=== PATIENT | female | born 1985 | race Two or more races ===

== ENCOUNTER 2019-08-15 21:02 | Emergency (ER) | payer BC, SELFPAY ==
[2019-08-15 21:22] VITALS: BP 141/74; PULSE 83; RESP 18; TEMP 37.4; O2SAT 98; BMI 41.8
[2019-08-15 21:56] VITALS: BP 116/76; PULSE 82; RESP 20; TEMP 37.1; O2SAT 96
--- NOTE | 2019-08-15 22:10 | XR_ITS ---
WS: [id number] PROCEDURE: XR chest 2V* [id number] CLINICAL INFORMATION: Fever and body aches COMPARISON: [id number] FINDINGS: Heart: Normal cardiac silhouette. Lungs: Lungs are clear. No consolidation or pleural fluid. Bones: Normal visualized bony structures. XR/XR chest 2V* [id number] IMPRESSION: Normal chest
[2019-08-15 22:11] LABS: Bilirubin Urine Neg (NEGATIVE); Blood Urine Neg (Negative); Glucose Urine UA Norm (Normal); Ketones Urine Negative (Negative); Leukocyte Esterase Urine Negative (Negative); Nitrate Urine Negative (Negative); Protein Urine Neg (Negative); Specific Gravity, Urine 1.007 (1.005-1.030); Urine Appearance Clear (CLEAR); Urine Color Straw (Yellow); Urobilinogen Urine Norm (Negative); pH Urine 7 (5-7)
[2019-08-15 22:12] LABS: Add Urine Culture? No
--- NOTE | 2019-08-15 22:12 | ED_ITS ---
HPI - General Adult General: Chief complaint: General Medical Stated complaint: FEVER, BODY ACHES Time Seen by Provider: 08/15/19 21:44 History of Present Illness: HPI narrative: Patient is a 34-year-old female comes to the ED with fever, body aches and nonproductive cough that started yesterday. She says her temperature at home today earlier this evening was 101 F and then she took ibuprofen this. She is also taking Mucinex today as well. She has some nasal congestion and cough, But the cough is nonproductive and she is not able to get up any sputum. She did state that she smokes 2 packs a day. She also started getting body aches. Denies any chest pain, shortness breath, nausea, vomiting, abdominal pain, constipation, blood in the stool, dysuria, hematuria. She does state that she had a little bit of diarrhea today but just one episode. Review of Systems General: Reports: 10 or more systems reviewed and unremarkable except in HPI and below PFSH ED PFSH: Statuses (acute, chronic, etc) shown below reflect problem list status as previously entered and may not be historically accurate Social History Smoking and tobacco status: never smoked Female Reproductive History: Date of last menstrual period: 08/07/19 Physical Exam Const: COMMON NORMALS: oriented x3 GENERAL APPEARANCE: diaphoretic (skin is clammy on face, hands and arms.) HENMT: COMMON NORMALS: normocephalic, TM's normal bilaterally and moist oral mucous membranes HEAD & SCALP: normocephalic FACE & SINUS: sinus tenderness frontal NOSE: nasal discharge clear TYMPANIC MEMBRANE: TM's normal bilaterally MOUTH: oral and palatal mucosa normal THROAT: posterior oropharynx normal and uvula midline Neck/C-Spine: COMMON NORMALS: supple GENERAL: Yes normal visual inspection Resp: COMMON NORMALS: normal respiratory effort, no retractions, no use of accessory muscles and clear to auscultation bilaterally AUSCULTATION: clear to auscultation bilaterally Cardio: COMMON NORMALS: regular rate, regular rhythm, S1 normal heart sound, S2 normal heart sound, no gallops, no clicks, no murmurs and peripheral pulses 2+ throughout RATE: regular rate RHYTHM: regular rhythm HEART SOUNDS: S1 normal and S2 normal PERIPHERAL PULSES: pulses 2+ throughout GI: COMMON NORMALS: normal to inspection, nondistended, normoactive bowel sounds, soft to palpation, non-tender and no masses PALPATION: Yes soft : COMMON NORMALS: Yes no CVA tenderness BLADDER/KIDNEY EXAM: Yes no CVA tenderness Back/Pelvis: COMMON NORMALS: no CVA tenderness Extremity: COMMON NORMALS: normal to inspection Neuro: COMMON NORMALS: oriented x3 and moves all extremities Skin: COMMON NORMALS: no rashes or lesions noted GENERAL SKIN EXAM: no rashes or lesions noted Course Vital Signs: Vital signs: Vital Signs Temperature 98.0 F 08/15/19 23:51 Pulse Rate 95 08/15/19 23:51 Respiratory Rate 16 08/15/19 23:51 Blood Pressure 111/64 08/15/19 23:51 Pulse Oximetry 98 08/15/19 23:51 MDM - General Adult Lab Data: Attestation: I reviewed the patient's lab results. Labs: Lab Results 08/15/19 08/15/19 Range/Units 20:20 20:20 Urine Color Straw (Yellow) Urine Appearance Clear (CLEAR) Urine pH 7 (5-7) Ur Specific Gravit y 1.007 (1.005-1.030) Urine Protein Neg (Negative) Urine Glucose (UA) Norm (Normal) Urine Ketones Negative (Negative) Urine Occult Blood Neg (Negative) Urine Nitrate Negative (Negative) Urine Bilirubin Neg (NEGATIVE) Urine Urobilinogen Norm (Negative) mg/dL Ur Leukocyte Taylor ase Negative (Negative) Influenza Type A A g Negative (Negative) POC Influenza B Ag Negative (Negative) Imaging Data^: CXR: Attestation: I personally reviewed and interpreted this imaging study as follows: My impression: No acute findings. Pending final radiology report. Discharge Plan Discharge Patient Disposition: Home, Self-Care Clinical Impression: Upper respiratory infection with cough and congestion Condition: Stable Prescriptions: New Tessalon Perles 100 mg capsule 100 mg PO TID PRN (Reason: cough) Qty: 30 RF: 0 No Action No Known Home Medications RF: 0 Discharge Orders: Discharge Order (Routine); Ordered 08/15/19 Ordered By: Donovan Mc Referrals: Lia Vargas DO [Family Provider] - Discharge Diet: Regular Discharge Activity: Resume usual activity Patient Instructions: Upper Respiratory Infection (ED) Activity Restrictions/Additional Instructions: Follow-up with your primary care provider in 7 days for reevaluation. Continue symptom management by drinking plenty of fluids, taking Mucinex and treating fevers with Tylenol or ibuprofen. Discharge Date/Time: 08/16/19 00:01 Coding Level of Care Code ED Medical Technologist Prn for Dede Styles
[2019-08-15 22:23] LABS: Influenza A by IFA Negative (Negative); Influenza B by IFA Negative (Negative)
[2019-08-15 23:51] VITALS: BP 111/64; PULSE 95; RESP 16; TEMP 36.7; O2SAT 98
== END 2019-08-16 00:01 | disposition home or self-care (01) ==
PROVIDERS: Emergency Medicine; Emergency Provider Physician Assistant; Family Provider Family Medicine
DX: J06.9 Acute upper respiratory infection, unspecified (principal); R05 Cough; R09.81 Nasal congestion; F17.210 Nicotine dependence, cigarettes, uncomplicated
CPT/HCPCS: 71046; 81001; 87804; 99281; 99283

== ENCOUNTER 2019-08-17 13:46 | Emergency (ER) | payer BC, SELFPAY ==
[2019-08-17 14:57] VITALS: BP 128/69; PULSE 65; RESP 18; TEMP 36.7; O2SAT 96; BMI 41.8
--- NOTE | 2019-08-17 15:14 | W.ED.FEVER ---
HPI - Fever General: Chief Complaint: Fever Stated Complaint: coughing/fever Time Seen by Provider: 08/17/19 15:07 Source: patient Mode of arrival: ambulatory Limitations: no limitations History of Present Illness: HPI Narrative: Patient comes in today with cough with congestion and fever for 4 days. Patient appears mildly unwell. Patient reports that she gets bronchitis once or twice a year and usually has to be treated for it. Patient appears in no pain. MD elicited complaint: fever Review of Systems General: Reports: 10 or more systems reviewed and unremarkable except in HPI and below Const: Reports: fever Resp: Reports: non-productive cough PFSH ED PFSH: Statuses (acute, chronic, etc) shown below reflect problem list status as previously entered and may not be historically accurate Social History Smoking and tobacco status: current every day smoker Female Reproductive History: Date of last menstrual period: 08/07/19 Physical Exam Const: COMMON NORMALS: no apparent distress and oriented x3 GENERAL APPEARANCE: cooperative HENMT: COMMON NORMALS: normocephalic, external ears normal, EAC's normal, TM's normal bilaterally and external nose normal HEAD & SCALP: normal to inspection and normocephalic FACE & SINUS: normal facial exam NOSE: external nose normal GENERAL EAR: hearing not grossly impaired EXTERNAL EAR: Yes external ears normal EXTERNAL AUDITORY CANAL: EAC's normal TYMPANIC MEMBRANE: TM's normal bilaterally MOUTH: oral and palatal mucosa normal THROAT: posterior oropharynx normal Eye: COMMON NORMALS: PERRL and EOMs intact bilaterally PUPIL: Yes PERRL Neck/C-Spine: COMMON NORMALS: full ROM and no lymphadenopathy Lymph: LYMPHATIC: no lymphedema noted Chest: COMMONS NORMALS: inspection of chest normal and palpation of chest normal Resp: COMMON NORMALS: normal respiratory effort AUSCULTATION: rhonchi Cardio: COMMON NORMALS: regular rate and regular rhythm RATE: regular rate RHYTHM: regular rhythm GI: COMMON NORMALS: normal to inspection, nondistended, normoactive bowel sounds and non-tender : COMMON NORMALS: Yes no CVA tenderness BLADDER/KIDNEY EXAM: Yes no CVA tenderness Back/Pelvis: COMMON NORMALS: no CVA tenderness and thoracic and lumbar spine normal to inspection Extremity: COMMON NORMALS: normal to inspection GENERAL: No edema Neuro: COMMON NORMALS: oriented x3, moves all extremities and no focal motor deficits Psych: COMMON NORMALS: mental status grossly normal and cooperative Skin: COMMON NORMALS: no rashes or lesions noted GENERAL SKIN EXAM: no rashes or lesions noted Course Vital Signs: Vital signs: Vital Signs Temperature 97.7 F 08/17/19 15:52 Pulse Rate 66 08/17/19 15:52 Respiratory Rate 16 08/17/19 15:52 Blood Pressure 110/72 08/17/19 15:52 Pulse Oximetry 98 08/17/19 15:52 MDM - Fever MDM Narrative: Medical decision making narrative: Patient comes in today with complaints of cough and congestion with fever for 4 days. On exam patient appears mildly unwell. Respirations are even with bronchial sounds in the lungs. Skin is warm and dry. Vital signs are stable. Differential diagnosis includes pneumonia, bronchitis, COPD, asthma. Reviewed exam with patient with recommendations for treatment and need for follow-up. Patient was given dexamethasone for help with respiratory effort and congestion. Patient was written prescriptions to follow. Patient reports understanding and agreed to plan. Discharge Plan Discharge Patient Disposition: Home, Self-Care Clinical Impression: Acute bronchitis Qualifiers: Bronchitis organism: unspecified organism Qualified Code(s): J20.9 - Acute bronchitis, unspecified Condition: Stable Prescriptions: New azithromycin 500 mg tablet 500 mg PO DAILY 3 Days Qty: 3 RF: 0 prednisone 20 mg tablet 40 mg PO DAILY 3 Days Qty: 6 RF: 0 codeine-guaifenesin 10-200 mg/5 mL liquid 5 ml PO Q4H PRN (Reason: cough) Qty: 200 RF: 0 No Action Tessalon Perles 100 mg capsule 100 mg PO TID PRN (Reason: cough) Qty: 30 RF: 0 Discharge Orders: Discharge Order (Routine); Ordered 08/17/19 Ordered By: Edmundo Camacho Referrals: Lia Vargas DO [Family Provider] - Discharge Diet: Usual diet Discharge Activity: Increase activity as tolerated Patient Instructions: Acute Bronchitis (ED) Activity Restrictions/Additional Instructions: Drink plenty of fluids Stop smoking Follow-up in one week for persistent symptoms Discharge Date/Time: 08/17/19 15:39 Coding Level of Care Code ED Retail Receiving Clerk for Chg Fwd Exam Problem Focused
[2019-08-17] MEDS: dexamethasone 10 mg/mL INJ IM (15:39)
[2019-08-17 15:52] VITALS: BP 110/72; PULSE 66; RESP 16; TEMP 36.5; O2SAT 98
== END 2019-08-17 15:39 | disposition home or self-care (01) ==
PROVIDERS: Emergency Provider Nurse Practitioner Family; Family Provider Family Medicine
DX: J20.9 Acute bronchitis, unspecified (principal); F17.210 Nicotine dependence, cigarettes, uncomplicated
CPT/HCPCS: 96372; 96375; 99281; 99282; J1100

== ENCOUNTER 2019-10-28 17:49 | Emergency (ER) | payer BC, SELFPAY ==
[2019-10-28 18:13] VITALS: BP 154/102; PULSE 83; RESP 18; TEMP 36.4; O2SAT 98; BMI 40.7
--- NOTE | 2019-10-28 18:26 | ED_ITS ---
HPI - Abdominal Pain General: Chief Complaint: Abdominal Pain Stated Complaint: abd pain Time Seen by Provider: 10/28/19 18:14 History of Present Illness: HPI narrative: 34-year-old female comes in complaining of abdominal pain in the epigastric area radiating into her back and into the chest is been going on for the last 2 days no history of any trauma is been mildly constipated is not been associated with any exertion. She has noticed is gotten worse by eating does not really even matter what she eats both lasagna and crackers seem to precipitate pain not eating does seem to make it better. She denies nausea or vomiting she denies any acholic stools. Denies any hematochezia or melena no UTI symptoms. No hematuria. MD elicited complaint: abdominal pain Pertinent past history: constipation Onset (ago): day(s) (2) Pain Consistency: intermittent Location: Epigastric Severity: moderate Quality: stabbing Radiation: epigastric and chest Migration to: no migration Exacerbating factors: eating Relieving factors: other (Not eating) Associated Symptoms: Reports bloating, constipation and GI cramping; Denies change in stool character, coffee ground emesis, diarrhea, dyspepsia, fever(s), hematochezia, hematuria, hematemesis, loose stools, melena, nausea and vomiting Treatments prior to arrival: other (Laxatives with no relief) Related Data: Date of Last Menstrual Period: 08/07/19 Review of Systems Const: Denies: fever ENMT: Denies: throat pain, ear pain, nasal discharge or nasal congestion Card: Denies: chest pain, edema, shortness of breath on exertion or shortness of breath when lying down Resp: Denies: shortness of breath, productive cough or non-productive cough GI: Reports: constipation, bloating and cramping; Denies: nausea, vomiting, vomiting blood, coffee grounds in vomit, diarrhea, change in stool character, blood in stool or black tarry stool : Denies: blood in urine Skin/Breast: Denies: rash or itching PFSH ED PFSH: Social History Smoking and tobacco status: current every day smoker Female Reproductive History: Date of last menstrual period: 08/07/19 Physical Exam Const: COMMON NORMALS: no apparent distress GENERAL APPEARANCE: cooperative and comfortable ORIENTATION/CONSCIOUSNESS: Yes awake, Yes oriented to person, Yes oriented to place and Yes oriented to time HENMT: COMMON NORMALS: normocephalic, head/scalp atraumatic, hearing grossly normal bilaterally, external ears normal, EAC's normal, TM's normal bilaterally, nasal mucous membranes and turbinates normal, moist oral mucous membranes and oropharynx normal HEAD & SCALP: normocephalic and atraumatic NOSE: nasal mucous membranes and turbinates normal EXTERNAL EAR: Yes external ears normal EXTERNAL AUDITORY CANAL: EAC's normal TYMPANIC MEMBRANE: TM's normal bilaterally Eye: COMMON NORMALS: PERRL, EOMs intact bilaterally, conjunctivae normal and no scleral icterus CONJUNCTIVA: Yes conjunctivae normal PUPIL: Yes PERRL Neck/C-Spine: COMMON NORMALS: full ROM, no lymphadenopathy, supple and no JVD Lymph: LYMPHATIC: no lymphadenopathy noted and no lymphedema noted Resp: COMMON NORMALS: normal respiratory effort, no retractions, no use of accessory muscles and clear to auscultation bilaterally AUSCULTATION: clear to auscultation bilaterally Cardio: COMMON NORMALS: no JVD, regular rate, regular rhythm and no murmurs RATE: regular rate RHYTHM: regular rhythm GI: COMMON NORMALS: soft to palpation and no hepatosplenomegaly AUSCULTATION: Yes normoactive bowel sounds PALPATION: Yes soft, Yes tender (Epigastric), No guarding and Yes no hepatosplenomegaly Extremity: COMMON NORMALS: normal to inspection, normal capillary refill, no clubbing, cyanosis or edema, no calf tenderness and no pedal edema Neuro: SENSORIUM/ORIENTATION: Yes oriented to person, Yes oriented to place and Yes oriented to time Skin: COMMON NORMALS: no rashes or lesions noted GENERAL SKIN EXAM: no rashes or lesions noted Course Vital Signs: Vital signs: Vital Signs Temperature 97.5 F L 10/28/19 18:13 Pulse Rate 83 10/28/19 21:02 Respiratory Rate 16 10/28/19 21:02 Blood Pressure 117/96 10/28/19 21:02 Pulse Oximetry 99 10/28/19 21:02 MDM - Abdominal Pain Lab Data: Labs: Lab Results 10/28/19 10/28/19 10/28/19 Range/Units 18:50 18:50 19:15 WBC 12.3 H (4.0-10.0) 10^3/ uL RBC 4.49 (4.1-5.3) 10^6/u L Hgb 14.3 (11.5-15.3) g/dL Hct 43.3 (37.0-47.0) % MCV 96.4 (81-99) fL MCH 31.8 (28.0-34.0) pg MCHC 33.0 (30.0-36.0) g/dL RDW 14.8 (12.1-15.1) % Plt Count 285 (130-400) 10^3/c mm MPV 9.7 (7.4-10.4) fL Neut % (Auto) 63.8 % Lymph % (Auto) 27.7 % [place] % (Auto) 5.5 % Eos % (Auto) 2.2 % Baso % (Auto) 0.4 % Neut # (Auto) 7.8 H (1.8-7.7) 10^3/u L Lymph # (Auto) 3.4 (0.8-4.8) 10^3/u L [place] # (Auto) 0.7 (0.2-0.9) 10^3/u L Eos # (Auto) 0.3 (0.0-0.8) 10^3/u L Baso # (Auto) 0.1 (0.0-0.1) 10^3/u L Nucleated RBC % (a uto) 0 % Nucleated RBCs # 0.0 /100WBC Sodium 136 (136-145) mmol/L Potassium 3.7 (3.5-5.1) mmol/L Chloride 102 (98-107) mmol/L Carbon Dioxide 23 (22-29) mmol/L Anion Gap 14.7 (5-19) BUN 7 (6-20) mg/dL Creatinine 0.8 (0.5-0.9) mg/dL GFR Calculation 82.1 L (90-130) mL/min Glucose 117 H (65-115) mg/dL Calculated Osmolal ity 279 L (285-295) mOsm/k g Calcium 9.2 (8.5-10.5) mg/dL Total Bilirubin 0.4 (0.15-1.2) mg/dL AST 71 H (0-32) U/L ALT 73 H (0-33) U/L Alkaline Phosphata se 92 (35-105) IU/L Total Protein 7.0 (6.6-8.7) g/dL Albumin 4.1 (3.5-5.2) g/dL Globulin 2.9 (1.3-4.6) g/dL Lipase 18 (13-60) U/L Urine Color Yellow (Yellow) Urine Appearance Clear (CLEAR) Urine pH 7 (5-7) Ur Specific Gravit y 1.000 L (1.005-1.030) Urine Protein Neg (Negative) Urine Glucose (UA) Norm (Normal) Urine Ketones Negative (Negative) Urine Blood Neg (Negative) Urine Nitrate Negative (Negative) Urine Bilirubin Neg (NEGATIVE) Urine Urobilinogen Norm (Negative) mg/dL Ur Leukocyte Taylor ase Negative (Negative) Discharge Plan Discharge Patient Disposition: Home, Self-Care Clinical Impression: Gastroesophageal reflux disease Condition: Stable Prescriptions: New pantoprazole 40 mg tablet,delayed release (DR/EC) 40 mg PO DAILY 56 Days Qty: 56 RF: 0 No Action Tessalon Perles 100 mg capsule 100 mg PO TID PRN (Reason: cough) Qty: 30 RF: 0 codeine-guaifenesin 10-200 mg/5 mL liquid 5 ml PO Q4H PRN (Reason: cough) Qty: 200 RF: 0 Discharge Orders: Discharge Order (Routine); Ordered 10/28/19 Ordered By: James Barnett Referrals: Lia Vargas DO [Family Provider] - Discharge Diet: Usual diet Discharge Activity: Increase activity as tolerated Patient Instructions: Diet for Ulcers and Gastritis (ED) Discharge Date/Time: 10/28/19 21:02 Coding Level of Care Code ED Circular Knitter for Chg Fwd Exam Comprehensive
--- NOTE | 2019-10-28 18:36 | CTR_ITS ---
PROCEDURE INFORMATION: Exam: CT Abdomen And Pelvis With Contrast Exam date and time: 10/28/2019 7:25 PM Age: 34 years old Clinical indication: Abdominal pain; Patient HX: C/O epigastric pain and nausea x 2 dyas; Additional info: Abd pain TECHNIQUE: Imaging protocol: Computed tomography of the abdomen and pelvis with intravenous contrast. Total DLP: 1901.5 mGy-cm Radiation optimization: All CT scans at this facility use at least one of these dose optimization techniques: automated exposure control; mA and/or kV adjustment per patient size (includes targeted exams where dose is matched to clinical indication); or iterative reconstruction. Contrast material: OMNI 300; Contrast volume: 95 ml; Contrast route: 20G; COMPARISON: No relevant prior studies available. FINDINGS: Liver: Hepatomegaly. Gallbladder and bile ducts: Normal. No calcified stones. No ductal dilation. Pancreas: Normal. No ductal dilation. Spleen: Normal. No splenomegaly. Adrenals: Normal. No mass. Kidneys and ureters: Normal. No hydronephrosis. Stomach and bowel: Unremarkable. No obstruction. No mucosal thickening. Appendix: No evidence of appendicitis. Intraperitoneal space: Unremarkable. No free air. No significant fluid collection. Vasculature: Unremarkable. No abdominal aortic aneurysm. Lymph nodes: Unremarkable. No enlarged lymph nodes. Bladder: Unremarkable as visualized. Reproductive: Unremarkable as visualized. Bones/joints: Unremarkable. No acute fracture. Soft tissues: Heavy body habitus. Other findings: No visible evidence of active or acute abdominal or pelvic pathologic process. CT/CT abdomen pelvis w con* [id number] IMPRESSION: 1. No visible evidence of active or acute abdominal or pelvic pathologic process. 2. Hepatomegaly. Radiation Dose CTDIVOL = (mGy): DLP = 1901.5 (mGy-cm)
--- NOTE | 2019-10-28 18:36 | XRR_ITS ---
PROCEDURE INFORMATION: Exam: XR Chest, 1 View Exam date and time: 10/28/2019 6:51 PM Age: 34 years old Clinical indication: Cough and dyspnea; Additional info: Dyspnea/cough. Abdominal pain TECHNIQUE: Imaging protocol: XR of the chest Views: Frontal portable upright view of the chest. COMPARISON: CR XR chest 2V* [id number] 08/15/2019 10:21 PM FINDINGS: Lungs: The lungs are clear bilaterally. The pulmonary vasculature is normal. Pleural space: No pleural effusion. No pneumothorax. Heart/Mediastinum: The heart is normal in size and contour. Mediastinum: Stable. Bones/joints: Stable. XR/XR chest 1V portable [id number] IMPRESSION: No acute cardiopulmonary abnormality identified.
[2019-10-28 19:12] LABS: Basophils # 0.1 10^3/uL (0.0-0.1); Basophils % 0.4 %; Eosinophils # 0.3 10^3/uL (0.0-0.8); Eosinophils % 2.2 %; Hematocrit 43.3 % (37.0-47.0); Hemoglobin 14.3 g/dL (11.5-15.3); Lymphocytes # 3.4 10^3/uL (0.8-4.8); Lymphocytes % 27.7 %; Mean Corpuscular Hemoglobin 31.8 pg (28.0-34.0); Mean Corpuscular Volume 96.4 fL (81-99); Mean Platelet Volume 9.7 fL (7.4-10.4); Monocytes # 0.7 10^3/uL (0.2-0.9); Monocytes % 5.5 %; Neutrophils # 7.8 10^3/uL (1.8-7.7); Neutrophils % 63.8 %; Nucleated Red Blood Cells % 0 %; Platelet Count 285 10^3/cmm (130-400); Red Blood Count 4.49 10^6/uL (4.1-5.3); Red Cell Distribution Width 14.8 % (12.1-15.1); White Blood Count 12.3 10^3/uL (4.0-10.0)
[2019-10-28 19:19] LABS: Alanine Aminotransferase 73 U/L (0-33); Albumin Level 4.1 g/dL (3.5-5.2); Alkaline Phosphatase 92 IU/L (35-105); Anion Gap 14.7 (5-19); Aspartate Amino Transferase 71 U/L (0-32); Blood Urea Nitrogen 7 mg/dL (6-20); Calcium 9.2 mg/dL (8.5-10.5); Carbon Dioxide 23 mmol/L (22-29); Chloride 102 mmol/L (98-107); Globulin 2.9 g/dL (1.3-4.6); Glomerular Filtration Rate 82.1 mL/min (90-130); Glucose 117 mg/dL (65-115); Lipase 18 U/L (13-60); Osmolality Calculated 279 mOsm/kg (285-295); Potassium 3.7 mmol/L (3.5-5.1); Sodium 136 mmol/L (136-145); Total Bilirubin 0.4 mg/dL (0.15-1.2)
[2019-10-28 19:36] LABS: Add Urine Microscopic? NO
[2019-10-28 19:41] LABS: Bilirubin Urine Neg (NEGATIVE); Blood Urine Neg (Negative); Glucose Urine UA Norm (Normal); Ketones Urine Negative (Negative); Leukocyte Esterase Urine Negative (Negative); Nitrate Urine Negative (Negative); Protein Urine Neg (Negative); Urine Appearance Clear (CLEAR); Urine Color Yellow (Yellow); Urobilinogen Urine Norm (Negative); pH Urine 7 (5-7)
[2019-10-28] MEDS: iohexol 300 mg/mL 100 mL Btl IV (19:51)
[2019-10-28 21:02] VITALS: BP 117/96; PULSE 83; RESP 16; O2SAT 99
== END 2019-10-28 21:02 | disposition home or self-care (01) ==
PROVIDERS: Emergency Provider Family Medicine; Family Provider Family Medicine
DX: K21.9 Gastro-esophageal reflux disease without esophagitis (principal); F17.210 Nicotine dependence, cigarettes, uncomplicated
CPT/HCPCS: 12345; 71045; 74177; 80053; 81003; 83690; 85025; 99283; A9270; Q9967

== ENCOUNTER → 2020-01-01 09:50 | Outpatient (BNVA) | payer BC, SELFPAY | PROVIDERS: Family Provider Family Medicine; PCP Family Medicine; Visit Provider Obstetrics & Gynecology | DX: N91.5 Oligomenorrhea, unspecified (principal) | CPT/HCPCS: 84146; 84443 ==

== ENCOUNTER → 2020-01-29 08:47 | Outpatient (BNVA) | payer BC, SELFPAY | PROVIDERS: Family Provider Family Medicine; PCP Family Medicine; Visit Provider Obstetrics & Gynecology | DX: Z01.419 Encounter for gynecological examination (general) (routine) without abnormal findings (principal); F41.9 Anxiety disorder, unspecified; F32.9 Major depressive disorder, single episode, unspecified | CPT/HCPCS: 88175 ==

== ENCOUNTER → 2020-05-27 17:09 | Outpatient (BNVA) | payer BC, SELFPAY | PROVIDERS: Family Provider Family Medicine; PCP Family Medicine; Visit Provider Obstetrics & Gynecology | DX: N89.8 Other specified noninflammatory disorders of vagina (principal) | CPT/HCPCS: 87210 ==

== ENCOUNTER → 2020-12-31 14:27 | Outpatient (BNVA) | payer BC, SELFPAY | PROVIDERS: Family Provider Family Medicine; PCP Family Medicine Adult Medicine; Visit Provider Family Medicine Adult Medicine | DX: F41.9 Anxiety disorder, unspecified (principal); F32.9 Major depressive disorder, single episode, unspecified; F43.10 Post-traumatic stress disorder, unspecified; K29.00 Acute gastritis without bleeding; Z13.6 Encounter for screening for cardiovascular disorders; E66.9 Obesity, unspecified; Z68.41 Body mass index [BMI] 40.0-44.9, adult; E66.01 Morbid (severe) obesity due to excess calories | CPT/HCPCS: 80053; 80061; 83036; 84443; 85025 ==

== ENCOUNTER → 2021-03-07 12:39 | Outpatient (BNVA) | payer BC, SELFPAY | PROVIDERS: Family Provider Family Medicine; PCP Family Medicine Adult Medicine; Visit Provider Nurse Practitioner Family | DX: Z20.822 Contact with and (suspected) exposure to COVID-19 (principal) | CPT/HCPCS: 87635 ==

== ENCOUNTER → 2021-03-20 08:03 | Outpatient (BNVA) | payer BC, SELFPAY | PROVIDERS: Family Provider Family Medicine; PCP Family Medicine Adult Medicine; Referring Provider Family Medicine Adult Medicine; Visit Provider Specialist | DX: G56.03 Carpal tunnel syndrome, bilateral upper limbs (principal) | CPT/HCPCS: 95910 ==

== ENCOUNTER → 2021-04-30 14:52 | Outpatient (BNVA) | payer BC, SELFPAY | PROVIDERS: Family Provider Family Medicine; PCP Family Medicine Adult Medicine; Visit Provider Nurse Practitioner Family | DX: Z20.822 Contact with and (suspected) exposure to COVID-19 (principal); J06.9 Acute upper respiratory infection, unspecified | CPT/HCPCS: 87635 ==

== ENCOUNTER → 2021-05-28 08:48 | Outpatient (BNVA) | payer BC, SELFPAY | PROVIDERS: Family Provider Family Medicine; PCP Family Medicine Adult Medicine; Visit Provider Family Medicine Adult Medicine | DX: R39.89 Other symptoms and signs involving the genitourinary system (principal) | CPT/HCPCS: 81000 ==

== ENCOUNTER → 2021-09-12 13:45 | Outpatient (BNVA) | payer BC, SELFPAY | PROVIDERS: Family Provider Family Medicine; PCP Family Medicine Adult Medicine; Visit Provider Obstetrics & Gynecology | DX: R73.03 Prediabetes (principal) | CPT/HCPCS: 83036; 83525 ==

== ENCOUNTER → 2021-11-03 10:50 | Outpatient (BNVA) | payer BC, SELFPAY | PROVIDERS: Family Provider Family Medicine; PCP Family Medicine Adult Medicine; Referring Provider Family Medicine Adult Medicine; Visit Provider Podiatrist Foot & Ankle Surgery | DX: M79.672 Pain in left foot (principal) | CPT/HCPCS: 73630 ==

== ENCOUNTER → 2022-07-10 09:18 | Outpatient (BNVA) | payer BC, SELFPAY | PROVIDERS: Family Provider Family Medicine; PCP Family Medicine; Visit Provider Family Medicine | DX: R35.0 Frequency of micturition (principal); F32.1 Major depressive disorder, single episode, moderate; F41.1 Generalized anxiety disorder; E66.01 Morbid (severe) obesity due to excess calories; F43.10 Post-traumatic stress disorder, unspecified; G47.00 Insomnia, unspecified; G31.84 Mild cognitive impairment of uncertain or unknown etiology; Z68.41 Body mass index [BMI] 40.0-44.9, adult; M54.9 Dorsalgia, unspecified; F17.200 Nicotine dependence, unspecified, uncomplicated; G89.29 Other chronic pain; E86.0 Dehydration | CPT/HCPCS: 80053; 80061; 81000; 85025 ==

== ENCOUNTER → 2022-08-13 13:35 | Outpatient (BNVA) | payer BC, SELFPAY | PROVIDERS: Family Provider Family Medicine; PCP Family Medicine; Visit Provider Family Medicine | DX: J02.9 Acute pharyngitis, unspecified (principal); B37.0 Candidal stomatitis; F32.1 Major depressive disorder, single episode, moderate; G31.84 Mild cognitive impairment of uncertain or unknown etiology; F41.1 Generalized anxiety disorder; F17.200 Nicotine dependence, unspecified, uncomplicated | CPT/HCPCS: 87071; 87880 ==

== ENCOUNTER → 2023-01-06 13:34 | Outpatient (BNVA) | payer BC, SELFPAY | PROVIDERS: Family Provider Family Medicine; PCP Family Medicine; Visit Provider Obstetrics & Gynecology | DX: N92.0 Excessive and frequent menstruation with regular cycle (principal); N85.2 Hypertrophy of uterus; N83.202 Unspecified ovarian cyst, left side | CPT/HCPCS: 76830 ==

== ENCOUNTER → 2023-01-11 13:36 | Outpatient (BNVA) | payer BC, SELFPAY | PROVIDERS: Family Provider Family Medicine; PCP Family Medicine; Visit Provider Obstetrics & Gynecology | DX: Z32.00 Encounter for pregnancy test, result unknown (principal); Z3A.00 Weeks of gestation of pregnancy not specified | CPT/HCPCS: 84702 ==

== ENCOUNTER → 2023-02-23 13:16 | Outpatient (BNVA) | payer BC, SELFPAY | PROVIDERS: Family Provider Family Medicine; PCP Family Medicine; Referring Provider Family Medicine; Visit Provider Student in an Organized Health Care Education/Training Program | DX: G56.03 Carpal tunnel syndrome, bilateral upper limbs (principal) | CPT/HCPCS: 73110 ==

== ENCOUNTER 2023-03-17 06:09 | Day surgery (SDC) | payer BC, SELFPAY ==
[2023-03-16 08:49] VITALS: BMI 38.3
[2023-03-17] VITALS (7 sets, daily range): BP systolic 98–133; BP diastolic 63–80; PULSE 62–89; RESP 18–22; TEMP 36.3–36.7; O2SAT 90–97
[2023-03-17 06:30] LABS: OR HCG Qualitative Urine Negative (Negative)
[2023-03-17] MEDS: acetaminophen 1,000 MG/100 ML PIGGYBACK 400 MG IV (06:42)
[2023-03-17] MEDS: ketorolac 30 mg/mL INJ IVP (06:42)
[2023-03-17] MEDS: sodium chloride 0.9% 1,000 ML 30 ML IV (06:42)
--- NOTE | 2023-03-17 06:57 | P.ANESASSM_ITS ---
Pre-Anesthetic Assessment Height/Weight: Height 1.7 m Weight 111.13 kg Temp Pulse Resp BP Pulse Ox O2 Del Method 98.0 F 80 18 133/76 97 Room Air 03/17/23 06:28 03/17/23 06:28 03/17/23 06:28 03/17/23 06:28 03/17/23 06:28 03/17/23 06:28 Preop Diagnosis: Right carpal Tunnel syndrome Operation Date: 03/17/23 07:45 Proposed Procedures p RIGHT CARPAL TUNNEL RELEASE [id number],G56.03(Right) - Michael Jesusita, Familial anesthetic complications: slow to wake up Was Beta Suhas taken within 24 hours: N/A Was Clonidine taken within 24 hours: N/A Last intake: Intake [employer] coffee Last Liquid Date 03/16/23 Last Liquid Time 22:00 Last Solid Date 03/16/23 Last Solid Time 20:00 Social No alcohol and No tobacco Exam alert, oriented x 3, clear to auscultation bilaterally and regular rate & rhythm Airway Mallampati: Class III Dentition: other (poor dentition, no upper teeth) Pulmonary Sleep Apnea Metabolic Morbid Obesity Neuropsych Anxiety Anesthetic Plan ASA status: 2 Anesthesia: MAC Risk of > 500 ml blood loss (7ml/kg in children): No Medications/Allergies Home Medications Medication Instructions Recorded Confirmed Last Taken Type cyclobenzaprine 5 mg tablet 5 mg PO TID PRN muscle spasm #30 01/26/23 03/17/23 3 Weeks Ago Rx tabs ~02/24/23 Allergies Allergy/AdvReac Type Severity Reaction Status Date / Time No Known Allergies Allergy Verified 02/23/23 13:29 Current Medications Generic Name Dose Route Start Last Admin Trade Name Freq PRN Reason Stop Dose Admin Sodium Chloride 1,000 mls @ 30 mls/hr 03/17/23 06:15 03/17/23 06:42 Sodium Chloride 0.9% IV 03/18/23 06:14 30 mls/hr .Q24H ERICKA Administration PFSH Anesthesia Medical History Allergic rhinitis due to allergen Bilateral arm numbness and tingling while sleeping Chronic pain in left foot Dyslipidemia (high LDL; low HDL) JEISON (generalized anxiety disorder) Gastritis Insomnia Memory changes Moderate major depression Morbid obesity with BMI of 40.0-44.9, adult Oligomenorrhea Prediabetes PTSD (post-traumatic stress disorder) Sebaceous cyst of breast Tobacco use disorder Surgical History History of tonsillectomy Family History Unknown Diabetes Hypertension Family/Other No problems noted. Sister Thyroid disease Denies family history of Colon cancer Ovarian cancer Heart disease Hypercholesteremia Breast cancer Uterine cancer Stroke Social History Smoking and tobacco status: current every day smoker cigarettes Packs smoked per day: 2 Alcohol intake: current Alcohol intake frequency: holidays/special occasions only Substance/Drug Use: never Erin/Buddhist: Christian Special erin needs: No Agree to transfusion: Yes Data Anesthesia Cardiac Studies: No Data to Display
--- NOTE | 2023-03-17 07:49 | W.PM.OPSUD ---
Surgery/Procedure H&P Update DATE OF PROCEDURE: March 17, 2023 DATE H&P PERFORMED: 02/23/23 CHANGES TO PREVIOUS DOCUMENTATION: None. No change in HPI visit from office visit on 02/23/2023. Patient has right carpal tunnel syndrome she is failed conservative approach this point time elects proceed with surgical intervention. She understands incidence procedure risk benefits complication alternatives with surgery and through shared decision making elects to proceed with surgical intervention of a right carpal tunnel release. All questions answered. PREOP DIAGNOSIS: Right carpal Tunnel syndrome PRIMARY INDICATION FOR PROCEDURE: Right Carpal tunnel syndrome PLANNED PROCEDURE: Operation Date: 03/17/23 07:45 Proposed Procedures p RIGHT CARPAL TUNNEL RELEASE [id number],G56.03(Right) - Michael Mc DO
[2023-03-17] MEDS: ceFAZolin 2,000 MG in sodium chloride 0.9% (plus) 50 ML 100 MG IV (07:56)
[2023-03-17] MEDS: ROPivacaine 0.5% SDV 30 mL 25 MG INJECTION (08:20)
[2023-03-17] MEDS: lidocaine-epi 1% 20 mL INJ 5 ML INJECTION (08:22)
--- NOTE | 2023-03-17 08:39 | P.OP_ITS ---
Operative Report Date of procedure: March 17, 2023 Surgeon: Michael Mc DO Procedure: Post-op diagnosis: Same Procedure done: 1.?Right carpal tunnel?release Surgeon: Michael Mc DO Duco Polisher: RAJ Jose was necessary for assistance and this case for holding of retraction and protection of neurovascular structures as well as assistance in wound closure. Anesthesia: MAC (Local) Estimated blood loss: [2]mL Tourniquet time [5]minutes IV fluids: See anesthesia?record Complications: None Findings: See operative?report narrative Condition: stable Disposition: same day Brief History: Patient is a pleasant [37 female]year-old [female] with?right carpal tunnel syndrome.? Patient has been worked up in the outpatient setting findings and physical examination consistent with this.? Patient nerve conduction studies consistent with carpal tunnel syndrome.? We detailed out patient's?risk benefits complication alternatives with surgical and nonsurgical treatment options. Through shared decision making, patient agrees to proceed with surgical intervention of the left carpal tunnel?release .? Patient understands and agrees with current plan.? All questions answered.? Patient elects to proceed with surgical intervention with carpal tunnel?release. Procedure: Patient seen and evaluated in the preoperative holding area.? Consent was?reviewed and signed with patient.? Correct extremity was marked.? Patient was seen evaluated by the anesthesia department once cleared for surgery was brought back to the operative suite.? Patient was kept on [facility] in supine position all bony prominences were well-padded patient properly secured to the bed.??Right upper extremity was then placed onto an armboard.? A nonsterile tourniquet was applied to the?Right upper arm.? Patient underwent anesthesia per the anesthesia department.? Patient's?Right upper extremity was then prepped and draped in standard orthopedic fashion.? Final timeout performed.? Patient?received appropriate preoperative antibiotics. Under sterile aseptic technique patient?received local anesthesia over the preplanned carpal tunnel incision site. Esmarch was used to exsanguinate the?Right upper extremity and tourniquet was insufflated to 250 mmHg. A standard mini open?Right carpal tunnel incision was made.? Starting distally at Singh's cardinal line in line with the fourth?ray extending proximally distal to the wrist crease centered over the carpal tunnel.? Sharp scalpel incision was made through skin and subcutaneous tissue.? Self- retaining?retractor was placed and the palmar fascia was identified.? This was then split longitudinally and direct visualization of the transverse carpal ligament was then made.? I then utilizing scalpel feathered through the transverse carpal ligament until I entered the floor of the transverse carpal tunnel ligament into the carpal tunnel.? Next I switched to dissection scissors and completed my?release of the transverse carpal ligament distally with care to protect the?recurrent motor branch.? I completely?released into the palmar fat and until no entrapment was noted distally.? Care was made to protect the superficial palmar arch during my distal dissection.?? Next I utilized a nasal speculum placed on top of the transverse carpal ligament and utilize this to?retract the subcutaneous fat and tissue and under direct loupe magnification was able to identify the transverse carpal ligament.? Next I then placed a [place] underneath the transverse carpal tunnel ligament to protect the contents of the carpal tunnel and subsequently utilizing dissection scissors under loupe magnification completely?released the transverse carpal ligament proximally into the median antebrachial fascia.? Care was made to protect the palmar cutaneous branch by keeping my scissors curved ulnarly.? Once completely?released, I then placed my [place] and had appropriate decompression of the carpal tunnel proximally as well as distally.? I then inspected the contents of the carpal tunnel which showed an hourglass shape of the median nerve showing its compression.? No masses were noted.? Tendons appeared healthy.? Wound was then thoroughly irrigated.? Tourniquet deflated.? Hemostasis satisfactory with bipolar electrocautery.? I then closed the incision with interrupted nylon stitches.? Xeroform 4 x 4's and a bulky soft dressing was applied.? Patient was then awakened from anesthesia and taken to PACU in stable condition.? Patient tolerated procedure without complications. Disposition: Patient taken to PACU in stable condition?recovering well.? D ressing clean dry and intact.? Patient will?receive appropriate discharge instructions as well as pain medication postoperatively.? Patient to follow-up with me in the office in 2 weeks.? They understand they may be weightbearing as tolerated to the?right hand.? Patient should keep incision clean dry and intact.? Patient understands if any questions or concerns may contact the office.
--- NOTE | 2023-03-17 08:42 | PM.OP2 ---
Brief Operative Note Date of procedure: 03/17/23 Pre-op diagnosis: Right carpal tunnel syndrome Post-op diagnosis: same Procedure Done: Right carpal tunnel release Surgeon: Michael Mc Estimated blood loss (mL): 5 Complications: none Post-op Plan: Orthopedic discharge instructions: Patient should leave dressing on in place for 72 hours after that may remove dressing, clean incision with warm soapy water pat dry and redress with a dry dressing or Band-Aid. Encourage finger range of motion as tolerated May weight-bear as tolerated to the operative extremity Elevation and ice as needed for pain and swelling Take pain medication as prescribed Take antinausea medication as needed May supplement with [id number] anti-inflammatories (make sure not to take more than 3000 mg of Tylenol in 1 day as your pain medication does have Tylenol in it) Follow-up in the orthopedic office in 2 weeks Contact the office for any questions or concerns Condition: stable Disposition: PACU Coding Level of Care Code Acute Code for Dede Styles
--- NOTE | 2023-03-17 08:44 | PM.PACU ---
PACU note Narrative: Patient is a 37-year-old female that just underwent Right carpal tunnel release. Patient transferred to PACU in stable condition. Patient is alert and talkative. pain is well controlled. Dressing on hand is dry and in place. Patient's fingers are warm and well-perfused. Patient can wiggle fingers. normal cap refill under 2 seconds. Patient has normal elbow range of motion. Unable to assess sensation due to residual localized anesthetic. Exam: awake Disposition: discharged
--- NOTE | 2023-03-17 09:30 | ANE.PACU2 ---
Inpatient post-anesthesia follow up: Airway intact: Yes Vital signs: Temperature 97.3 F Pulse Rate 62 Respiratory Rate 18 Blood Pressure 98/77 Pulse Oximetry 96 Oxygen Delivery Me thod Room Air Oxygen Flow Rate Fraction of Inspir ed Oxygen Hydration adequate: Yes Nausea and vomiting: No Pain level: 1 Mental status: Baseline
== END 2023-03-17 09:34 | disposition home or self-care (01) ==
PROVIDERS: Anesthesiology; PCP Family Medicine; Visit Provider Student in an Organized Health Care Education/Training Program
PROC: (CPT 64721; principal; 2023-03-17 07:45)
DX: G56.01 Carpal tunnel syndrome, right upper limb (principal); G47.30 Sleep apnea, unspecified; E66.01 Morbid (severe) obesity due to excess calories; Z68.38 Body mass index [BMI] 38.0-38.9, adult; F17.210 Nicotine dependence, cigarettes, uncomplicated
CPT/HCPCS: 64721; 81025; 84703; J0131; J0690; J1885; J2250; J2704; J2795; J3010; J7030

== ENCOUNTER 2023-04-15 05:45 | Day surgery (SDC) | payer BC, SELFPAY ==
[2023-04-14 12:45] VITALS: BMI 38.3
[2023-04-15] VITALS (7 sets, daily range): BP systolic 112–164; BP diastolic 55–102; PULSE 68–84; RESP 16–616; TEMP 36.1–36.6; O2SAT 91–97
[2023-04-15] MEDS: sodium chloride 0.9% 1,000 ML 30 ML IV (06:21)
[2023-04-15 06:36] LABS: OR HCG Qualitative Urine Negative (Negative)
--- NOTE | 2023-04-15 06:56 | W.PM.OPSUD ---
Surgery/Procedure H&P Update DATE OF PROCEDURE: April 15, 2023 DATE H&P PERFORMED: 03/30/23 H&P UPDATE INFORMATION: I have reviewed H&P completed within last 30 days, I have examined patient prior to procedure and No changes to prior documentation PREOP DIAGNOSIS: Left carpal tunnel syndrome PRIMARY INDICATION FOR PROCEDURE: Left carpal tunnel release PLANNED PROCEDURE: Operation Date: 04/15/23 07:40 Proposed Procedures p Carpal Tunnel Release(Left) - Michael Mc DO
--- NOTE | 2023-04-15 07:01 | P.ANESASSM_ITS ---
Pre-Anesthetic Assessment Height/Weight: Height 1.7 m Weight 111.13 kg Temp Pulse Resp BP Pulse Ox O2 Del Method 97.8 F 69 16 124/55 97 Room Air 04/15/23 06:08 04/15/23 06:08 04/15/23 06:08 04/15/23 06:08 04/15/23 06:08 04/15/23 06:08 Preop Diagnosis: Left Carpal Tunnel syndrome Operation Date: 04/15/23 07:40 Proposed Procedures p Carpal Tunnel Release(Left) - Michael Mc DO Familial anesthetic complications: None Was Beta Suhas taken within 24 hours: N/A Was Clonidine taken within 24 hours: N/A Last intake: Intake Last Liquid Date 04/14/23 Last Liquid Time 23:30 Last Solid Date 04/14/23 Last Solid Time 21:30 Social No alcohol and No tobacco Exam alert, oriented x 3, clear to auscultation bilaterally and regular rate & rhythm Airway Mallampati: Class II Dentition: other (no upper teeth) Pulmonary Sleep Apnea Metabolic Diabetes Mellitus Anesthetic Plan ASA status: 2 Anesthesia: General and MAC Risk of > 500 ml blood loss (7ml/kg in children): No Medications/Allergies Home Medications Medication Instructions Recorded Confirmed Last Taken Type clindamycin phosphate 1 % lotion 1 applic topical DAILY 04/14/23 04/15/23 04/13/23 History ibuprofen 800 mg tablet 800 mg PO Q6H PRN Pain 04/14/23 04/15/23 04/13/23 History Allergies Allergy/AdvReac Type Severity Reaction Status Date / Time No Known Allergies Allergy Verified 03/30/23 09:22 Current Medications Generic Name Dose Route Start Last Admin Trade Name Freq PRN Reason Stop Dose Admin Sodium Chloride 1,000 mls @ 30 mls/hr 04/15/23 06:00 04/15/23 06:21 Sodium Chloride 0.9% IV 04/16/23 05:59 30 mls/hr .Q24H ERICKA Administration PFSH Anesthesia Medical History Allergic rhinitis due to allergen Bilateral arm numbness and tingling while sleeping Chronic pain in left foot Dyslipidemia (high LDL; low HDL) JEISON (generalized anxiety disorder) Gastritis Insomnia Memory changes Moderate major depression Morbid obesity with BMI of 40.0-44.9, adult Oligomenorrhea Prediabetes PTSD (post-traumatic stress disorder) Sebaceous cyst of breast Tobacco use disorder Surgical History History of tonsillectomy Family History Unknown Diabetes Hypertension Family/Other No problems noted. Sister Thyroid disease Denies family history of Colon cancer Ovarian cancer Heart disease Hypercholesteremia Breast cancer Uterine cancer Stroke Social History Smoking and tobacco status: current every day smoker cigarettes Packs smoked per day: 2 Alcohol intake: current Alcohol intake frequency: holidays/special occasions only Substance/Drug Use: never Erin/Evangelical: Sabianism Special erin needs: No Agree to transfusion: Yes Female Reproductive History Date of last menstrual period: 04/04/23 Data Anesthesia Cardiac Studies: No Data to Display
[2023-04-15] MEDS: acetaminophen 1,000 MG/100 ML PIGGYBACK 400 MG IV (07:26)
[2023-04-15] MEDS: ketorolac 30 mg/mL INJ IVP (07:29)
[2023-04-15] MEDS: ceFAZolin 2,000 MG in sodium chloride 0.9% (plus) 50 ML 100 MG IV (08:16)
[2023-04-15] MEDS: lidocaine-epi 2% 20 mL INJ INJECTION (08:44)
[2023-04-15] MEDS: ROPivacaine 0.5% SDV 30 mL 150 MG INJECTION (08:44)
--- NOTE | 2023-04-15 08:59 | P.BOP_ITS ---
Date of Procedure: 04/15/2023 Surgeon: Michael Mc DO Heavy Duty Mechanic Farm Equipment(s): None Procedure(s) performed: Left carpal tunnel release Findings of the procedure(s): Left wrist median nerve entrapment consistent with carpal tunnel syndrome, procedure went as planned Estimated blood loss: 3 mL Specimen(s) removed: None Post-operative diagnosis: Left carpal tunnel syndrome
--- NOTE | 2023-04-15 09:00 | P.OP_ITS ---
Operative Report Date of procedure: April 15, 2023 Surgeon: Michael Mc DO Procedure: Preoperative diagnosis: Left carpal tunnel syndrome post-op diagnosis: Same Procedure done: 1.?Left carpal tunnel release Surgeon: Michael Mc DO Anesthesia: MAC (Local) Estimated blood?loss: [3]mL Tourniquet time [9]minutes IV fluids: See anesthesia record Complications: None Findings: See operative report narrative Condition: stable Disposition: same day Brief History: Patient is a pleasant [38]year-old [female]?with?left carpal tunnel syndrome.? Patient has been worked up in the outpatient setting findings and physical examination consistent with this.? Patient nerve?conduction studies consistent with carpal tunnel syndrome.? We detailed?out?patient's risk benefits complication alternatives with surgical and?nonsurgical treatment options. Through shared decision making, patient?agrees to proceed with surgical intervention of the?left carpal tunnel release .? Patient understands and agrees with current plan.? All questions answered.? Patient elects to proceed with surgical intervention with carpal tunnel release. Procedure: Patient seen and evaluated in the preoperative holding area.? Consent was reviewed and signed with patient.? Correct extremity was marked.? Patient was seen evaluated by the anesthesia department once cleared for surgery was brought back to the operative suite.? Patient was kept on [facility] in supine position all bony prominences were well-padded patient properly secured to the bed.??Left upper extremity was then placed onto an armboard.? A nonsterile tourniquet was applied to the?left upper arm.? Patient underwent anesthesia per the anesthesia department.? Patient's?left upper extremity was then prepped and draped in standard orthopedic fashion.? Final timeout performed.? Patient received appropriate preoperative antibiotics. Under sterile aseptic technique patient received?local anesthesia over the preplanned carpal tunnel incision site. Esmarch was used to exsanguinate the?left upper extremity and tourniquet was insufflated to 250 mmHg. A standard mini open?left carpal tunnel incision was made.? Starting distally at Singh's cardinal?line in?line with the fourth ray extending proximally distal to the wrist crease centered over the carpal tunnel.? Sharp scalpel incision was made through skin and subcutaneous tissue.? Self-retaining retractor was placed and the palmar fascia was identified.? This was then split?longitudinally and direct visualization of the transverse carpal?ligament was then made.? I then utilizing scalpel feathered through the transverse carpal?ligament until I entered the floor of the transverse carpal tunnel?ligament into the carpal tunnel.? Next I switched to dissection scissors and completed my release of the transverse carpal?ligament distally with care to protect the recurrent motor branch.? I completely released into the palmar fat and until no entrapment was noted distally.? Care was made to protect the superficial palmar arch during my distal dissection.? Next I then placed a [place] underneath the transverse carpal tunnel?ligament to protect the contents of the carpal tunnel and subsequently utilizing dissection scissors under?loupe magnification completely released the transverse carpal?ligament proximally into the median antebrachial fascia.? Care was made to protect the palmar cutaneous branch by keeping my scissors curved ulnarly.? Once completely released, I then placed my [place] and had appropriate decompression of the carpal tunnel proximally as well as distally.? I then inspected the contents of the carpal tunnel which showed an hourglass shape of the median nerve showing its compression.? No masses were noted.? Tendons appeared healthy.? Wound was then thoroughly irrigated.? Tourniquet deflated.? Hemostasis satisfactory with bipolar electrocautery.? I then closed the incision with interrupted nylon stitches.? Xeroform 4 x 4's and a bulky soft dressing was applied to the?left upper extremity.? Patient was then awakened from anesthesia and taken to PACU in stable condition.? Patient tolerated procedure without complications. Disposition: Patient taken to PACU in stable condition recovering well.? Dressing clean dry and intact.? Patient will receive appropriate discharge instructions as well as pain medication postoperatively.? Patient to follow-up with me in the office in 2 weeks.? They understand they may be weightbearing as tolerated to the?left hand.? Patient should keep incision clean dry and intact.? Patient understands if any questions or concerns may contact the office.
--- NOTE | 2023-04-15 09:45 | ANE.PACU2 ---
Inpatient post-anesthesia follow up: Airway intact: Yes Vital signs: Temperature 97 F Pulse Rate 68 Respiratory Rate 16 Blood Pressure 155/90 Pulse Oximetry 97 Oxygen Delivery Me thod Room Air Oxygen Flow Rate Fraction of Inspir ed Oxygen Hydration adequate: Yes Nausea and vomiting: No Pain level: 1 Mental status: Baseline
== END 2023-04-15 09:50 | disposition home or self-care (01) ==
PROVIDERS: Anesthesiology; PCP Family Medicine; Visit Provider Student in an Organized Health Care Education/Training Program
PROC: (CPT 64721; principal; 2023-04-15 07:40)
DX: G56.02 Carpal tunnel syndrome, left upper limb (principal); G47.30 Sleep apnea, unspecified; E11.9 Type 2 diabetes mellitus without complications; E78.5 Hyperlipidemia, unspecified; F41.1 Generalized anxiety disorder; E66.01 Morbid (severe) obesity due to excess calories; Z68.38 Body mass index [BMI] 38.0-38.9, adult; F17.210 Nicotine dependence, cigarettes, uncomplicated
CPT/HCPCS: 64721; 81025; 84703; J0131; J0690; J1885; J2704; J2795; J7030

== ENCOUNTER 2023-08-04 04:49 | Emergency (ER) | payer BC, SELFPAY ==
[2023-08-04 04:55] VITALS: BP 122/85; RESP 18; TEMP 36.7; O2SAT 96; BMI 37.5
--- NOTE | 2023-08-04 05:03 | XRR_ITS ---
PROCEDURE INFORMATION: Exam: XR Right Ankle Exam date and time: 08/04/2023 5:21 AM Age: 38 years old Clinical indication: Right; Patient HX: Patient with all over RT ankle pain, stepped on a curb Wednesday the wrong way. Patient is able to move patient all around easily. TECHNIQUE: Imaging protocol: Radiologic exam of the right ankle. Views: 3 or more views. AP Oblique Lateral COMPARISON: No relevant prior studies available. FINDINGS: Bones/joints: There is normal alignment without fractures or dislocations. The tibiotalar joint and talar dome are unremarkable. The subtalar joint is unremarkable. There is no ankle joint effusion. The mortise is normal. The distal tibia-fibular alignment is unremarkable. Tiny plantar calcaneal spur is seen. Soft tissues: There is mild lateral ankle region soft tissue swelling. There are no radiopaque foreign bodies. Notes: If there is further concern, recommend follow-up radiographs or MRI for complete assessment. XR/XR ankle RT min 3V* [id number] IMPRESSION: No fractures or dislocation of the right ankle. Mild lateral ankle region soft tissue swelling.
--- NOTE | 2023-08-04 05:04 | W.ED.EXTPRO ---
HPI - Extremity Problem General: Chief complaint: Extremity Injury, Lower Stated complaint: right ankle pain Time Seen by Provider: 08/04/23 04:52 History of Present Illness: Patient presents to the ER with complaints of right ankle pain since stepping off a curb wrong and rolling it on Wednesday. Patient reports pain is along the medial side ankle. Patient says all she wants is an x-ray and a referral to an orthopod. She does not here for pain medicine. Patient does have full range of motion especially in the anterior posterior direction but has more pain with inversion and eversion of the ankle. Review of Systems General: Reports: 10 or more systems reviewed and unremarkable except in HPI and below PFSH ED PFSH: Medical History Tobacco use disorder JEISON (generalized anxiety disorder) PTSD (post-traumatic stress disorder) Moderate major depression Allergic rhinitis due to allergen Chronic pain in left foot Memory changes Prediabetes Bilateral arm numbness and tingling while sleeping Sebaceous cyst of breast Insomnia Dyslipidemia (high LDL; low HDL) Morbid obesity with BMI of 40.0-44.9, adult Oligomenorrhea Gastritis Surgical History History of tonsillectomy Family History Unknown Diabetes Hypertension Family/Other No problems noted. Sister Thyroid disease Denies family history of Colon cancer Ovarian cancer Heart disease Hypercholesteremia Breast cancer Uterine cancer Stroke Social History Smoking and tobacco/nicotine status: current every day tobacco/nicotine user cigarettes Packs smoked per day: 2 Alcohol intake: current Alcohol intake frequency: holidays/special occasions only Substance/Drug Use: never Erin/Buddhism: Yarsani Special erin needs: No Agree to transfusion: Yes Female Reproductive History: Date of last menstrual period: 08/02/23 Physical Exam Const: COMMON NORMALS: no acute distress, average body habitus, patient oriented x3, healthy appearing, alert and well nourished Neck/C-Spine: COMMON NORMALS: no JVD Chest: COMMONS NORMALS: normal inspection of the chest and normal palpation of entire chest wall Resp: COMMON NORMALS: normal respiratory effort, No retractions, No use of accessory muscles and clear to auscultation bilaterally AUSCULTATION: clear to auscultation bilaterally Cardio: COMMON NORMALS: no JVD, regular rate, regular rhythm, S1 normal heart sound present, S2 normal heart sound present, No gallops present (Cardio), No clicks present (Cardio), No murmurs present (Cardio) and No rub (Cardio) RATE: regular rate RHYTHM: regular rhythm HEART SOUNDS: S1 normal heart sound present and S2 normal heart sound present GI: COMMON NORMALS: Normal to inspection, nondistended, normoactive bowel sounds present, Soft to palpation, non-tender and No hepatosplenomegaly present PALPATION: Yes Soft to palpation and Yes No hepatosplenomegaly present Extremity: OTHER: Right ankle mildly swollen, tender to palpate over the ankle region primarily the medial malleoli region. Patient has full range of motion but does complain of more pain when ankle is inverted no obvious crepitus or deformity noted. Neuro: COMMON NORMALS: patient oriented x3 SENSORIUM/ORIENTATION: Yes alert Course Vital Signs: Vital signs: Vital Signs Temperature 98.0 F 08/04/23 04:55 Respiratory Rate 18 08/04/23 04:55 Blood Pressure 122/85 08/04/23 04:55 Pulse Oximetry 96 08/04/23 04:55 Oxygen Delivery Me thod Room Air 08/04/23 04:55 MDM - Extremity (Nontraumatic) Medical Decision Making X-ray was obtained of ankle. Preliminary report by myself is negative for fracture. This was discussed with the patient. Patient still wants referral to someone about her chronic ankle pain. We will refer the patient to podiatry as did the deal with foot and ankles. Otherwise patient be discharged home to follow-up with her PCP on an as-needed basis. Differential Diagnosis Unlikely herpes zoster, gout, cellulitis, superficial thrombophlebitis, deep venous thrombosis of upper extremity, lower extremity edema or deep vein thrombosis of lower extremity Medical Records I reviewed the patient's medical records. Lab Data I reviewed the patient's lab results. All radiology interpretation(s) finalized by discharge Discharge Plan Discharge Patient Disposition: Home Clinical Impression: Mild sprain of right ankle, Ankle pain, chronic Condition: Stable Prescriptions: No Action ibuprofen 800 mg Tablet 800 mg PO Q6H PRN (Reason: Pain) clindamycin phosphate 1 % lotion 1 applic TOPICAL DAILY tramadol 50 mg tablet 50 mg PO Q6H PRN (Reason: pain) Qty: 20 0RF Discharge Orders: Discharge ED (Routine); Ordered 08/04/23 Ordered By: Evan Ness Referrals: Kameron Sellers MD [Primary Care Provider] - 1 week Patient Instructions: Sprains - Ankle Activity Restrictions/Additional Instructions: Please continue to use [id number] Tylenol and Motrin as needed for pain. You have been referred to case management as they will help get a referral for you. They usually do this within 1-2 business days if they have not called you by then please feel free to call us back. Otherwise follow-up with your family practice physician within the next 7 to 10 days for further evaluation and treatment. Coding Level of Care Code ED [employer] for Dede Styles
[2023-08-04 05:38] VITALS: BP 122/85; RESP 18; TEMP 36.7; O2SAT 96
--- NOTE | 2023-08-04 07:41 | DCPLANNER ---
Message sent to podiatry , Chronic ankle pain. Follow up.
== END 2023-08-04 05:48 | disposition home or self-care (01) ==
PROVIDERS: Emergency Provider Emergency Medicine; PCP Family Medicine
DX: S93.401A Sprain of unspecified ligament of right ankle, initial encounter (principal); G89.29 Other chronic pain; M25.571 Pain in right ankle and joints of right foot; F17.210 Nicotine dependence, cigarettes, uncomplicated; E78.5 Hyperlipidemia, unspecified; X50.1XXA Overexertion from prolonged static or awkward postures, initial encounter
CPT/HCPCS: 73610; 99283

== ENCOUNTER → 2023-10-25 17:23 | Outpatient (BNVA) | payer BC, SELFPAY | PROVIDERS: PCP Family Medicine; Visit Provider Family Medicine | DX: R06.02 Shortness of breath (principal); R07.9 Chest pain, unspecified | CPT/HCPCS: 71046 ==

== ENCOUNTER 2024-09-25 20:56 | Emergency (ER) | payer BC, SELFPAY ==
[2024-09-25 21:06] VITALS: BP 159/81; PULSE 82; RESP 16; TEMP 37.2; O2SAT 97
[2024-09-25 21:11] VITALS: BP 137/84; PULSE 86; RESP 18; O2SAT 97
--- NOTE | 2024-09-25 22:07 | ED_ITS ---
HPI - Extremity Problem General: Chief complaint: Extremity Problem,Nontraumatic Stated complaint: dr jude Wu hand middle finger swelling and numbness Time Seen by Provider: 09/25/24 21:20 Source: patient Mode of arrival: ambulatory Limitations: no limitations History of Present Illness: Patient is a 39-year-old female who presents to the emergency department complaining of right middle finger pain and swelling for the past few days. Was seen by primary care earlier today and had draining of a paronychia, started on Bactrim but she has yet to start taking this. States that she was told to come to the ED if it was not getting better or if there was circumferential swelling, she states that it is both more painful and she has noticed redness to her finger pad. She arrived stating she was anticipating a procedure to relieve the pressure in this. Denies any fever or other systemic signs of illness. She notes that overall the finger has been swelling intermittently for weeks, just has been worse over the past few days. Vitals normal at this time, no other symptoms. MD Complaint: extremity pain Onset (ago): day(s) Pain Consistency: constant Location: right and upper extremity (Middle finger) Severity scale (1-10): 10 Quality: burning and stabbing Radiation: none Exacerbating factors: range of motion and palpation Associated symptoms: Deny chest pain, fever(s) or rash Related Data Home Medications ?Medication ?Instructions ?Recorded ?Confirmed ibuprofen 800 mg tablet 800 mg PO Q6H PRN Pain 04/1409/25/24 Previous Rx's ?Medication ?Instructions ?Recorded quetiapine 25 mg tablet (Seroquel) 12.5 mg (1/2 x 25 m g) PO DAILY #90 06/01/24 tabs tizanidine 4 mg capsule 4 mg PO BID PRN muscle spast icity 06/01/24 #20 caps sulfamethoxazole 800 1 tab PO BID #14 tabs mg-trimethoprim 160 mg tablet (Bactrim DS) Allergies Allergy/AdvReac Type Severity Reaction Status Date / Time No Known Allergies Allergy Verified 09/25/24 21:11 Review of Systems General: Reports: 10 or more systems reviewed and unremarkable except in HPI and below Const: Denies: fever(s), chills or fatigue Eyes: Denies: change in vision ENMT: Denies: throat pain, ear or mastoid pain or nasal discharge Card: Denies: chest pain, palpitations, swelling of feet/ankles or lightheadedness Resp: Denies: dyspnea, productive cough or wheezing GI: Denies: abdominal pain, nausea, vomiting, diarrhea or constipation : Denies: flank pain, difficulty voiding, dysuria or urinary frequency Musc: Reports: extremity pain (Right middle finger); Denies: neck pain, back pain or joint pain Skin/Breast: Reports: erythema, skin pain, skin tenderness, skin swelling and changing lesions (Right distal middle finger); Denies: rash Neuro: Denies: headache(s), numbness in extremities or weakness in extremities PFSH ED PFSH: Medical History Gastritis Tobacco use disorder JEISON (generalized anxiety disorder) PTSD (post-traumatic stress disorder) Moderate major depression Allergic rhinitis due to allergen Chronic pain in left foot Memory changes Prediabetes Bilateral arm numbness and tingling while sleeping Sebaceous cyst of breast Insomnia Dyslipidemia (high LDL; low HDL) Morbid obesity with BMI of 40.0-44.9, adult Oligomenorrhea Surgical History History of tonsillectomy Family History Unknown Diabetes Hypertension Family/Other No problems noted. Sister Thyroid disease Denies family history of Colon cancer Ovarian cancer Heart disease Hypercholesteremia Breast cancer Uterine cancer Stroke Social History Smoking and tobacco/nicotine status: current every day tobacco/nicotine user cigarettes Packs smoked per day: 2 Alcohol intake: current Alcohol intake frequency: holidays/special occasions only Substance/Drug Use: never Erin/Roman Catholic: Anabaptist Special erin needs: No Agree to transfusion: Yes Physical Exam Const: COMMON NORMALS: no acute distress, average body habitus, patient oriented x3, no limitations, healthy appearing, alert and well nourished HENMT: COMMON NORMALS: normocephalic and atraumatic HEAD & SCALP: normocephalic and atraumatic Neck/C-Spine: COMMON NORMALS: full ROM, no lymphadenopathy, supple and no meningeal signs Resp: COMMON NORMALS: normal respiratory effort, No use of accessory muscles and clear to auscultation bilaterally AUSCULTATION: clear to auscultation bilaterally Cardio: COMMON NORMALS: regular rate and regular rhythm RATE: regular rate RHYTHM: regular rhythm Extremity: COMMON NORMALS: full ROM and capillary refill normal NARRATIVE EXTREMITY EXAM: Swelling to tip of right middle finger, tenderness to palpation associated Neuro: COMMON NORMALS: patient oriented x3, moves all extremities, no focal motor deficits and no sensory deficits noted SENSORIUM/ORIENTATION: Yes alert MENINGEAL SIGNS: Yes no meningeal signs Skin: COMMON NORMALS: no wounds and turgor normal NARRATIVE SKIN EXAM: There is redness and diffuse swelling to right distal finger, however this seems to spare the finger pad aside from minor swelling. There is what appears to be a little bit of purulence just inferior to cuticle GENERAL SKIN EXAM: turgor normal Procedures Abscess I/D Site: hand Side (if applicable): right Local Anesthetic: lidocaine 2% (Digital block) Amount of anesthesia used (mL): 8 Technique: incised with #11 blade Packing used?: none Course Vital Signs: Vital signs: Vital Signs Temperature 99.0 F 09/25/24 21:06 Pulse Rate 86 09/25/24 21:11 Respiratory Rate 18 09/25/24 21:11 Blood Pressure 137/84 09/25/24 21:11 Pulse Oximetry 97 09/25/24 21:11 Oxygen Delivery Me thod Room Air 09/25/24 21:06 MDM - Extremity (Nontraumatic) Medical Decision Making Patient was seen by primary care for the same complaint, she presented stating that the pain was still present. There did appear to be little bit of purulence on exam at the right distal middle finger, this was incised with 11 blade and very minimal amount of pus was expressed. This does give the clinical appearance of a paronychia, does not seem to be a felon at this time. She had not been taking the antibiotics yet, she needs to start taking the Bactrim and I did inform her that if the swelling or redness does start to involve the finger pad that she can present back in for reevaluation. Also informed her to elevate the extremity and ice for added relief, and to take the antibiotics as prescribed. Ibuprofen and Tylenol also encouraged. Her vitals were stable and she is stable for discharge home at this time and agrees with plan. No radiology studies performed this visit Discharge Plan Discharge Patient Disposition: Home Clinical Impression: Paronychia of finger of right hand Condition: Stable Prescriptions: No Action tizanidine 4 mg capsule 4 mg PO BID PRN (Reason: muscle spasticity) Qty: 20 0RF quetiapine [Seroquel] 25 mg tablet 12.5 mg PO DAILY Qty: 90 1RF sulfamethoxazole-trimethoprim [Bactrim DS] 800-160 mg tablet 1 tab PO BID Qty: 14 0RF ibuprofen 800 mg Tablet 800 mg PO Q6H PRN (Reason: Pain) Discharge Orders: Discharge ED (Routine); Ordered 09/25/24 Ordered By: Guido Valencia Referrals: Kameron Sellers MD [Primary Care Provider] - Patient Instructions: Paronychia (ED) Activity Restrictions/Additional Instructions: Please begin taking the Bactrim prescribed to you. Ice to the finger. Elevation. If you start developing any severe redness or swelling to the pad of your finger, please return to the ED as we discussed. Monitor for any fever or other systemic signs of illness. Ibuprofen and Tylenol. Please see the at tached patient instructions for further education. Print Language: Latvian Coding Level of Care Code ED Senior Software Quality Analyst for [employer]
[2024-09-25] MEDS: lidocaine 2% INJ 20 mL 10 ML INJECTION (22:08)
[2024-09-25 22:09] VITALS: BP 137/84; PULSE 79; O2SAT 96
== END 2024-09-25 22:10 | disposition home or self-care (01) ==
PROVIDERS: Emergency Provider Physician Assistant; PCP Family Medicine
DX: L03.011 Cellulitis of right finger (principal); F17.210 Nicotine dependence, cigarettes, uncomplicated
CPT/HCPCS: 26010; 99283; J9999